=== PATIENT | female | born 1990 | race Caucasian/White ===

== ENCOUNTER 2018-02-22 12:32 | Inpatient (IN) | payer OTHER ==
[2018-02-22] MEDS ORDERED: CARBOPROST 250 MCG INJ IM (16:00)
[2018-02-22] MEDS ORDERED: METHYLERGONOVINE 0.2 MG INJ IM (16:00)
[2018-02-22] MEDS ORDERED: IBUPROFEN 600 MG TAB PO (16:00)
[2018-02-22] MEDS ORDERED: BUTORPHANOL 2 MG INJ IV (16:00)
[2018-02-22] MEDS ORDERED: HYDROCODONE/APAP (5/325) TAB PO (16:00)
[2018-02-22] MEDS ORDERED: LIDOCAINE 1% (MPF) 30 ML INJ INJ (16:00)
[2018-02-22] MEDS ORDERED: MISOPROSTOL 200 MCG TAB PR (16:00)
[2018-02-22] MEDS ORDERED: OXYTOCIN 30 UNITS/LR 500 ML IV ×2 (16:00)
[2018-02-22 16:11] LABS: ADD MAN DIFF? NO
[2018-02-22 16:13] LABS: BASOPHILS % 0.2 % (0.0-2.0); EOSINOPHILS % 0.3 % (0.0-7.0); HEMATOCRIT 36.8 % (37.0-47.0); HEMOGLOBIN 12.2 g/dl (12.0-16.0); LYMPHOCYTES # 2.9 10^3/ul (0.8-2.9); MEAN CORPUSCULAR HEMOGLOBIN 28.8 pg (29.0-33.0); MEAN CORPUSCULAR HGB CONC 33.2 g/dl (32.0-37.0); MEAN PLATELET VOLUME 9.5 fl (7.4-10.4); MONOCYTE # 0.8 10^3/ul (0.3-0.9); NEUTROPHIL # 9.9 10^3/ul (1.6-7.5); NEUTROPHILS % 72.1 % (39.0-77.0); PLATELET COUNT 312 10^3/UL (140-415); RED BLOOD COUNT 4.23 10^6/ul (4.20-5.40); RED CELL DISTRIBUTION WIDTH 13.3 % (11.5-14.5)
[2018-02-22 16:13] LABS: WHITE BLOOD COUNT 13.7 10^3/ul (4.8-10.8)
[2018-02-22 16:31] LABS: INR 0.93; PROTIME 12.5 Sec (11.9-14.9)
[2018-02-22 16:32] LABS: PARTIAL THROMBOPLASTIN TIME 29.4 Sec (23.0-35.0)
[2018-02-22] MEDS: LACTATED RINGER'S 1,000 ML IV* ×2 (16:53→23:34)
[2018-02-22 17:04] LABS: HEPATITIS B SURFACE ANTIGEN NEGATIVE (NEGATIVE)
[2018-02-22] MEDS: DINOPROSTONE 10 MG VAG SUPP VAG (18:06)
[2018-02-23] MEDS: LACTATED RINGER'S 1,000 ML IV* ×2 (07:18→15:45)
[2018-02-23] MEDS: MISOPROSTOL 50 MCG CAPSULE PO ×4 (10:15→22:12)
[2018-02-23 18:26] LABS: ADD MAN DIFF? NO
[2018-02-23 18:28] LABS: ADD UMIC YES; UR ASCORBIC ACID NEGATIVE (NEGATIVE); UR BACTERIA FEW /HPF (NONE SEEN); UR BILIRUBIN (Dip) NEGATIVE (NEGATIVE); UR BLOOD (Dip) 1+ mg/dL (NEGATIVE); UR CLARITY CLEAR (CLEAR); UR COLOR STRAW (YELLOW); UR GLUCOSE (Dip) NEGATIVE (NEGATIVE); UR KETONES (Dip) NEGATIVE (NEGATIVE); UR LEUKOCYTE ESTERASE (Dip) NEGATIVE Leu/ul (NEGATIVE); UR NITRITE (Dip) NEGATIVE (NEGATIVE); UR RBC 0 /HPF (0-5); UR SPECIFIC GRAVITY (Dip) 1.006 (1.003-1.030); UR TOTAL PROTEIN (Dip) NEGATIVE (NEGATIVE); UR UROBILINOGEN (Dip) NEGATIVE (NEGATIVE); UR WBC 1 /HPF (0-5)
[2018-02-23 18:29] LABS: WHITE BLOOD COUNT 14.8 10^3/ul (4.8-10.8)
[2018-02-23 18:29] LABS: BASOPHILS % 0.2 % (0.0-2.0); EOSINOPHILS % 0.1 % (0.0-7.0); LYMPHOCYTES # 2.9 10^3/ul (0.8-2.9); LYMPHOCYTES % 19.6 % (15.0-51.0); MEAN CORPUSCULAR HEMOGLOBIN 28.6 pg (29.0-33.0); MEAN CORPUSCULAR HGB CONC 32.4 g/dl (32.0-37.0); MEAN CORPUSCULAR VOLUME 88.1 fl (82.0-101.0); MEAN PLATELET VOLUME 9.5 fl (7.4-10.4); MONOCYTE # 0.8 10^3/ul (0.3-0.9); MONOCYTES % 5.5 % (0.0-11.0); NEUTROPHILS % 74.1 % (39.0-77.0); PLATELET COUNT 286 10^3/UL (140-415); RED CELL DISTRIBUTION WIDTH 13.6 % (11.5-14.5)
[2018-02-23 18:53] LABS: ALANINE AMINOTRANSFERASE 25 IU/L (13-69); ALBUMIN 3.1 g/dl (3.3-4.9); ALBUMIN/GLOBULIN RATIO 0.93; ALKALINE PHOSPHATASE 206 IU/L (42-121); ANION GAP 6 (5-13); ASPARTATE AMINO TRANSFERASE 25 IU/L (15-46); BILIRUBIN,INDIRECT 0.3 mg/dl (0-1.1); BILIRUBIN,TOTAL 0.3 mg/dl (0.2-1.3); BLOOD UREA NITROGEN 8 mg/dl (7-20); CALCIUM 9.5 mg/dl (8.4-10.2); CARBON DIOXIDE 26 mmol/L (21-31); CHLORIDE 106 mmol/L (97-110); CREATININE 0.56 mg/dl (0.44-1.00); GLUCOSE 77 mg/dl (70-220); POTASSIUM 3.9 mmol/L (3.5-5.1); SODIUM 138 mmol/L (135-144); TOTAL PROTEIN 6.4 g/dl (6.1-8.1); URIC ACID 6.5 mg/dl (3.1-7.9)
[2018-02-23 18:56] LABS: INR 0.93; PARTIAL THROMBOPLASTIN TIME 29.8 Sec (23.0-35.0); PROTIME 12.6 Sec (11.9-14.9)
[2018-02-23 21:31] LABS: RAPID PLASMA REAGIN NONREACTIVE (NR)
[2018-02-24] MEDS: LACTATED RINGER'S 1,000 ML IV* ×5 (00:08→20:12)
[2018-02-24] MEDS: MISOPROSTOL 50 MCG CAPSULE PO ×2 (01:52→06:33)
[2018-02-24] MEDS ORDERED: ONDANSETRON 4 MG INJ IV (10:00)
[2018-02-24] MEDS ORDERED: DIPHENHYDRAMINE 50 MG INJ IV (10:00)
[2018-02-24] MEDS ORDERED: NALOXONE (0.4 MG/ML) INJ IV (10:00)
[2018-02-24] MEDS: FENTAnyl 2MCG/ML-ROPIV 0.2% 100 ML BAG EPI ×2 (16:41→23:49)
[2018-02-24] MEDS: AMPICILLIN 2 GM/NS (PMX) 100 ML IVPB (19:39)
[2018-02-24] MEDS: OXYTOCIN 30 UNITS/LR 500 ML IV (20:24)
[2018-02-24] MEDS: AMPICILLIN 1 GM/NS (PMX) 50 ML IVPB (23:48)
[2018-02-24] MEDS ORDERED: ACETAMINOPHEN 500 MG TAB PO (23:59)
[2018-02-25] MEDS ORDERED: GENTAMICIN 80 MG/NS (PMX) 50 ML IVPB
[2018-02-25] MEDS ORDERED: ACETAMINOPHEN 325 MG TAB (00:09)
[2018-02-25] MEDS ORDERED: GENTAMICIN 120 MG/NS (PMX) 100 ML IVPB (00:09)
[2018-02-25] MEDS: ACETAMINOPHEN 325 MG TAB PO (00:47)
[2018-02-25] MEDS: GENTAMICIN 120 MG/NS (PMX) 100 ML IVPB (00:47)
[2018-02-25] MEDS: OXYTOCIN 30 UNITS/LR 500 ML IV ×2 (00:50→05:38)
[2018-02-25] MEDS: LACTATED RINGER'S 1,000 ML IV* ×2 (02:11→18:11)
[2018-02-25] MEDS ORDERED: CARBOPROST 250 MCG INJ IM (02:30)
[2018-02-25] MEDS ORDERED: MISOPROSTOL 200 MCG TAB PR (02:30)
[2018-02-25] MEDS ORDERED: SENNA/DOCUSATE NA (8.6MG/50MG) TAB PO (02:30)
[2018-02-25] MEDS ORDERED: METHYLERGONOVINE 0.2 MG INJ IM (02:30)
[2018-02-25] MEDS ORDERED: MAGNESIUM HYDROXIDE 30ML CUP PO (02:30)
[2018-02-25] MEDS ORDERED: OXYTOCIN 30 UNITS/LR 500 ML IV (02:30)
[2018-02-25] MEDS ORDERED: ACETAMINOPHEN 325 MG TAB PO ×2 (02:30)
[2018-02-25] MEDS ORDERED: DIBUCAINE 1% 30 GM OINT PR (02:30)
[2018-02-25] MEDS ORDERED: ONDANSETRON 4 MG INJ IV (02:30)
[2018-02-25] MEDS: WITCH HAZEL/GLYCERIN PAD PR (05:35)
[2018-02-25] MEDS: LANOLIN 7 GM TUBE TOP (05:36)
[2018-02-25] MEDS: BENZOCAINE 20% 56 ML SPRAY TOP (05:36)
[2018-02-25] MEDS: IBUPROFEN 600 MG TAB PO (05:36)
[2018-02-26] MEDS: LACTATED RINGER'S 1,000 ML IV* ×2 (02:11→10:11)
[2018-02-26 06:50] LABS: ADD MAN DIFF? NO
[2018-02-26 06:52] LABS: WHITE BLOOD COUNT 14.8 10^3/ul (4.8-10.8)
[2018-02-26 06:52] LABS: BASOPHILS % 0.2 % (0.0-2.0); EOSINOPHILS # 0.1 10^3/ul (0.0-0.5); EOSINOPHILS % 0.6 % (0.0-7.0); HEMATOCRIT 30.1 % (37.0-47.0); HEMOGLOBIN 9.9 g/dl (12.0-16.0); LYMPHOCYTES # 3.6 10^3/ul (0.8-2.9); MEAN CORPUSCULAR HEMOGLOBIN 29.2 pg (29.0-33.0); MEAN CORPUSCULAR HGB CONC 32.9 g/dl (32.0-37.0); MEAN CORPUSCULAR VOLUME 88.8 fl (82.0-101.0); MEAN PLATELET VOLUME 9.3 fl (7.4-10.4); MONOCYTE # 0.9 10^3/ul (0.3-0.9); MONOCYTES % 6.1 % (0.0-11.0); NEUTROPHIL # 10.1 10^3/ul (1.6-7.5); NEUTROPHILS % 68.6 % (39.0-77.0); PLATELET COUNT 220 10^3/UL (140-415); RED BLOOD COUNT 3.39 10^6/ul (4.20-5.40); RED CELL DISTRIBUTION WIDTH 13.9 % (11.5-14.5)
== END 2018-02-26 12:30 | disposition home or self-care (01) | DRG 807 ==
LOC: OBT 12:32 → PP1 02-25 02:44 → L-D 12:32 → OBT 14:40 → L-D 14:40
PROVIDERS: Obstetrics & Gynecology
PROC: 3E0P7VZ Introduction of Hormone into Female Reproductive, Via Natural or Artificial Opening (ICD-10-PCS; 2018-02-22)
PROC: 10E0XZZ Delivery of Products of Conception, External Approach (ICD-10-PCS; principal; 2018-02-25)
PROC: 0HQ9XZZ Repair Perineum Skin, External Approach (ICD-10-PCS; 2018-02-25)
DX: O41.03X0 Oligohydramnios, third trimester, not applicable or unspecified (principal); O70.0 First degree perineal laceration during delivery; Z37.0 Single live birth; Z3A.39 39 weeks gestation of pregnancy
CPT/HCPCS: 62319; 76815; 76818; 80053; 81001; 84560; 85025; 85384; 85610; 85730; 86592; 86850; 86870; 86900; 86901; 87340; 88307; 99464